=== PATIENT | female | born 1990 | race Caucasian/White ===

== ENCOUNTER 2018-10-14 18:35 | Outpatient (CLI) | payer OTHER ==
[2018-10-14 21:42] LABS: ADD UMIC YES; UR ASCORBIC ACID NEGATIVE (NEGATIVE); UR BILIRUBIN (Dip) NEGATIVE (NEGATIVE); UR BLOOD (Dip) 3+ mg/dL (NEGATIVE); UR CLARITY CLEAR (CLEAR); UR COLOR YELLOW (YELLOW); UR GLUCOSE (Dip) 3+ mg/dL (NEGATIVE); UR KETONES (Dip) TRACE mg/dL (NEGATIVE); UR LEUKOCYTE ESTERASE (Dip) NEGATIVE Leu/ul (NEGATIVE); UR MUCUS FEW /HPF (NONE SEEN); UR NITRITE (Dip) NEGATIVE (NEGATIVE); UR RBC 1 /HPF (0-5); UR SQUAMOUS EPITHELIAL CELL FEW /HPF (FEW); UR TOTAL PROTEIN (Dip) NEGATIVE (NEGATIVE); UR UROBILINOGEN (Dip) 1+ mg/dL (NEGATIVE); UR WBC 1 /HPF (0-5)
[2018-10-14 23:51] LABS: HEMOGLOBIN A1C 6.3 % (0-5.9)
[2018-10-15] LABS: GLUCOSE 85 mg/dl (70-220)
[2018-10-15 01:54] LABS: AMPHETAMINE/METHAMPHETAMINE Negative (NEGATIVE); BARBITURATES Negative (NEGATIVE); BENZODIAZEPINES Negative (NEGATIVE); CANNABINOIDS Negative (NEGATIVE); COCAINE Negative (NEGATIVE); OPIATES Negative (NEGATIVE)
== END 2018-10-15 00:20 | disposition home or self-care (01) ==
LOC: OBT 18:35 → L-D 18:37
DX: O24.419 Gestational diabetes mellitus in pregnancy, unspecified control (principal); O62.9 Abnormality of forces of labor, unspecified; Z3A.36 36 weeks gestation of pregnancy
CPT/HCPCS: 36415; 76815; 76818; 80307; 81001; 82947; 83036

== ENCOUNTER 2018-11-04 09:26 | Outpatient (CLI) | payer OTHER ==
[2018-11-04 10:44] LABS: ADD MAN DIFF? NO
[2018-11-04 10:48] LABS: BASOPHILS % 0.3 % (0.0-2.0); EOSINOPHILS % 0.5 % (0.0-7.0); HEMATOCRIT 36.9 % (37.0-47.0); HEMOGLOBIN 11.7 g/dl (12.0-16.0); LYMPHOCYTES # 1.4 10^3/ul (0.8-2.9); LYMPHOCYTES % 23.6 % (15.0-51.0); MEAN CORPUSCULAR HEMOGLOBIN 25.4 pg (29.0-33.0); MEAN CORPUSCULAR HGB CONC 31.7 g/dl (32.0-37.0); MEAN CORPUSCULAR VOLUME 80.2 fl (82.0-101.0); MEAN PLATELET VOLUME 12.4 fl (7.4-10.4); MONOCYTE # 0.3 10^3/ul (0.3-0.9); MONOCYTES % 5.1 % (0.0-11.0); NEUTROPHIL # 4.1 10^3/ul (1.6-7.5); NEUTROPHILS % 69.3 % (39.0-77.0); PLATELET COUNT 219 10^3/UL (140-415); RED CELL DISTRIBUTION WIDTH 15.1 % (11.5-14.5)
[2018-11-04 10:48] LABS: WHITE BLOOD COUNT 5.9 10^3/ul (4.8-10.8)
[2018-11-04 11:02] LABS: ADD UMIC YES; UR ASCORBIC ACID NEGATIVE (NEGATIVE); UR BACTERIA FEW /HPF (NONE SEEN); UR BILIRUBIN (Dip) NEGATIVE (NEGATIVE); UR BLOOD (Dip) 1+ mg/dL (NEGATIVE); UR CLARITY SLIGHTLY CLOUDY (CLEAR); UR COLOR YELLOW (YELLOW); UR GLUCOSE (Dip) NEGATIVE (NEGATIVE); UR KETONES (Dip) NEGATIVE (NEGATIVE); UR LEUKOCYTE ESTERASE (Dip) 1+ Leu/ul (NEGATIVE); UR NITRITE (Dip) NEGATIVE (NEGATIVE); UR RBC 1 /HPF (0-5); UR SPECIFIC GRAVITY (Dip) 1.014 (1.003-1.030); UR SQUAMOUS EPITHELIAL CELL MODERATE /HPF (FEW); UR TOTAL PROTEIN (Dip) NEGATIVE (NEGATIVE); UR UROBILINOGEN (Dip) NEGATIVE (NEGATIVE); UR WBC 2 /HPF (0-5)
[2018-11-04 11:05] LABS: INR 0.86; PROTIME 11.8 Sec (11.9-14.9); PT RATIO 0.9
[2018-11-04 11:07] LABS: PARTIAL THROMBOPLASTIN TIME 27.6 Sec (23.0-35.0)
[2018-11-04 11:08] LABS: ALANINE AMINOTRANSFERASE 16 IU/L (13-69); ALBUMIN 3.4 g/dl (3.3-4.9); ALBUMIN/GLOBULIN RATIO 0.94; ALKALINE PHOSPHATASE 394 IU/L (42-121); ANION GAP 9 (5-13); ASPARTATE AMINO TRANSFERASE 24 IU/L (15-46); BILIRUBIN,INDIRECT 0.4 mg/dl (0-1.1); BILIRUBIN,TOTAL 0.4 mg/dl (0.2-1.3); BLOOD UREA NITROGEN 9 mg/dl (7-20); CALCIUM 9.1 mg/dl (8.4-10.2); CARBON DIOXIDE 16 mmol/L (21-31); CHLORIDE 113 mmol/L (97-110); CREATININE 0.48 mg/dl (0.44-1.00); Estimated GFR > 60 mL/min (>60); GLUCOSE 86 mg/dl (70-220); SODIUM 138 mmol/L (135-144); URIC ACID 4.3 mg/dl (3.1-7.9)
== END 2018-11-04 13:20 | disposition home or self-care (01) ==
LOC: OBT 09:26 → L-D 09:26 → OBT 13:20
DX: O24.419 Gestational diabetes mellitus in pregnancy, unspecified control (principal); O32.1XX0 Maternal care for breech presentation, not applicable or unspecified; O13.3 Gestational [pregnancy-induced] hypertension without significant proteinuria, third trimester; Z3A.38 38 weeks gestation of pregnancy
CPT/HCPCS: 76815; 76818; 80053; 81001; 82962; 84560; 85025; 85384; 85610; 85730

== ENCOUNTER 2018-11-11 05:24 | Inpatient (IN) | payer OTHER ==
[2018-11-11] MEDS ORDERED: CEFAZOLIN 2 GM/50 ML (PMX) 50 ML IVPB (06:00)
[2018-11-11] MEDS ORDERED: CARBOPROST 250 MCG INJ IM ×2 (06:00→12:00)
[2018-11-11] MEDS ORDERED: OXYTOCIN 30 UNITS/LR 500 ML IV ×3 (06:00→12:00)
[2018-11-11] MEDS ORDERED: METHYLERGONOVINE 0.2 MG INJ IM ×2 (06:00→12:00)
[2018-11-11] MEDS ORDERED: MISOPROSTOL 200 MCG TAB PR ×2 (06:00→12:00)
[2018-11-11] MEDS: LACTATED RINGER'S 1,000 ML IV (06:29)
[2018-11-11 06:33] LABS: ADD MAN DIFF? NO
[2018-11-11 06:39] LABS: BASOPHILS % 0.3 % (0.0-2.0); EOSINOPHILS # 0.1 10^3/ul (0.0-0.5); EOSINOPHILS % 0.8 % (0.0-7.0); HEMATOCRIT 36.5 % (37.0-47.0); HEMOGLOBIN 11.5 g/dl (12.0-16.0); LYMPHOCYTES # 1.8 10^3/ul (0.8-2.9); LYMPHOCYTES % 29.7 % (15.0-51.0); MEAN CORPUSCULAR HEMOGLOBIN 25.3 pg (29.0-33.0); MEAN CORPUSCULAR HGB CONC 31.5 g/dl (32.0-37.0); MEAN CORPUSCULAR VOLUME 80.2 fl (82.0-101.0); MEAN PLATELET VOLUME 12.8 fl (7.4-10.4); MONOCYTE # 0.4 10^3/ul (0.3-0.9); MONOCYTES % 6.3 % (0.0-11.0); NEUTROPHIL # 3.6 10^3/ul (1.6-7.5); NEUTROPHILS % 61.7 % (39.0-77.0); PLATELET COUNT 227 10^3/UL (140-415); RED BLOOD COUNT 4.55 10^6/ul (4.20-5.40); RED CELL DISTRIBUTION WIDTH 15.3 % (11.5-14.5)
[2018-11-11 06:39] LABS: WHITE BLOOD COUNT 5.9 10^3/ul (4.8-10.8)
[2018-11-11 06:59] LABS: INR 0.85; PROTIME 11.7 Sec (11.9-14.9); PT RATIO 0.9
[2018-11-11 07:00] LABS: PARTIAL THROMBOPLASTIN TIME 27.7 Sec (23.0-35.0)
[2018-11-11] MEDS ORDERED: OXYTOCIN 30 UNITS/LR 500 ML BAG IV (07:00)
[2018-11-11] MEDS ORDERED: morphine SULFATE/PF (10 MG/10 ML) INJ (07:27)
[2018-11-11] MEDS ORDERED: FENTAnyl 50 MCG/ML VIAL (07:27)
[2018-11-11] MEDS ORDERED: DEXAMETHASONE 4 MG/ML 1 ML INJ (08:10)
[2018-11-11] MEDS ORDERED: ONDANSETRON 4 MG INJ (08:11)
[2018-11-11] MEDS ORDERED: NALOXONE (0.4 MG/ML) INJ IV (09:30)
[2018-11-11] MEDS ORDERED: ZOLPIDEM 5 MG TAB PO (09:30)
[2018-11-11] MEDS ORDERED: HYDROmorphONE 0.5 MG/0.5 ML SYG IV (09:30)
[2018-11-11] MEDS ORDERED: ONDANSETRON 4 MG INJ IV (09:30)
[2018-11-11] MEDS: DIPHENHYDRAMINE 50 MG INJ IV (10:33)
[2018-11-11] MEDS: HYDROmorphONE 0.5 MG/0.5 ML SYG IV (11:28)
[2018-11-11] MEDS ORDERED: NACL 0.9% 3 ML SYG IV (12:00)
[2018-11-11] MEDS: OXYTOCIN 30 UNITS/LR 500 ML IV (13:37)
[2018-11-11] MEDS: KETOROLAC 30 MG INJ IV ×2 (13:38→22:23)
[2018-11-11] MEDS: IBUPROFEN 800 MG TAB PO ×2 (14:00→17:05)
[2018-11-11 15:43] LABS: RAPID PLASMA REAGIN NONREACTIVE (NR)
[2018-11-11] MEDS: CEFAZOLIN 2 GM/50 ML (PMX) 50 ML IVPB (16:06)
[2018-11-12] MEDS: CEFAZOLIN 2 GM/50 ML (PMX) 50 ML IVPB ×2 (00:15→10:32)
[2018-11-12] MEDS: LACTATED RINGER'S 1,000 ML IV (00:15)
[2018-11-12] MEDS: IBUPROFEN 800 MG TAB PO ×3 (06:00→21:36)
[2018-11-12 09:19] LABS: ADD MAN DIFF? NO
[2018-11-12 09:25] LABS: BASOPHILS % 0.3 % (0.0-2.0); EOSINOPHILS % 0.3 % (0.0-7.0); HEMATOCRIT 29.4 % (37.0-47.0); HEMOGLOBIN 9.2 g/dl (12.0-16.0); LYMPHOCYTES # 1.7 10^3/ul (0.8-2.9); MEAN CORPUSCULAR HEMOGLOBIN 25.2 pg (29.0-33.0); MEAN CORPUSCULAR HGB CONC 31.3 g/dl (32.0-37.0); MEAN CORPUSCULAR VOLUME 80.5 fl (82.0-101.0); MEAN PLATELET VOLUME 12.7 fl (7.4-10.4); MONOCYTE # 0.5 10^3/ul (0.3-0.9); MONOCYTES % 6.6 % (0.0-11.0); NEUTROPHIL # 5.5 10^3/ul (1.6-7.5); NEUTROPHILS % 70.4 % (39.0-77.0); PLATELET COUNT 191 10^3/UL (140-415); RED BLOOD COUNT 3.65 10^6/ul (4.20-5.40); RED CELL DISTRIBUTION WIDTH 15.4 % (11.5-14.5)
[2018-11-12 09:25] LABS: WHITE BLOOD COUNT 7.8 10^3/ul (4.8-10.8)
[2018-11-12] MEDS: OXYCODONE/ACETAMINOPHEN (5/325) TAB PO ×2 (09:51→19:46)
[2018-11-12] MEDS: FERROUS SULFATE (EC) 325 MG TAB PO (21:36)
[2018-11-12] MEDS: MAGNESIUM HYDROXIDE 30ML CUP PO (22:17)
[2018-11-12] MEDS: SENNA TAB PO (22:17)
[2018-11-13] MEDS: OXYCODONE/ACETAMINOPHEN (5/325) TAB PO ×2 (03:32→17:48)
[2018-11-13] MEDS: IBUPROFEN 800 MG TAB PO ×3 (05:35→21:51)
[2018-11-13] MEDS: MAGNESIUM HYDROXIDE 30ML CUP PO ×2 (09:19→21:00)
[2018-11-13] MEDS: FERROUS SULFATE (EC) 325 MG TAB PO ×2 (09:19→20:44)
[2018-11-13] MEDS: SENNA TAB PO ×2 (09:19→21:00)
[2018-11-14] MEDS: IBUPROFEN 800 MG TAB PO (06:01)
[2018-11-14] MEDS: MAGNESIUM HYDROXIDE 30ML CUP PO (09:00)
[2018-11-14] MEDS: SENNA TAB PO (09:00)
[2018-11-14] MEDS: FERROUS SULFATE (EC) 325 MG TAB PO (09:06)
[2018-11-14] MEDS: DIPHTH/TET/ACEL PERTUSS (ADULT) 0.5 ML VIAL IM* (11:50)
== END 2018-11-14 12:40 | disposition home or self-care (01) | DRG 785 ==
LOC: L-D 05:24 → PP1 11:51
PROVIDERS: Obstetrics & Gynecology
PROC: 10D00Z1 Extraction of Products of Conception, Low, Open Approach (ICD-10-PCS; principal; 2018-11-11 07:30)
PROC: 0UB70ZZ Excision of Bilateral Fallopian Tubes, Open Approach (ICD-10-PCS; 2018-11-11 07:30)
DX: O24.420 Gestational diabetes mellitus in childbirth, diet controlled (principal); O34.211 Maternal care for low transverse scar from previous cesarean delivery; Z3A.39 39 weeks gestation of pregnancy; Z37.0 Single live birth; Z30.2 Encounter for sterilization; O90.81 Anemia of the puerperium
CPT/HCPCS: 85025; 85610; 85730; 86592; 86850; 86900; 86901; 88302; 90715; 99464